=== PATIENT | female | born 1985 | race Caucasian/White ===

== ENCOUNTER 2019-01-25 14:36 | Inpatient (IN) | payer OTHER ==
[~2019-01-25] VITALS: Ht 172.7 cm; Wt 85.0 kg
[2019-01-30] VITALS (56 sets, daily range): BP systolic 104–153; BP diastolic 56–87; PULSE 59–123; TEMP 97.5–100.3
--- NOTE | 2019-01-30 07:30 | NUR ---
Patient ambulatory to unit accompanied by spouse for scheduled induction of labor. Patient in clean gown, oriented to room and call light and resting in bed. FHR and contraction monitors placed and explained. Patient denies any leaking of fluid, vaginal bleeding and states baby has been very active. G1L0, 39.5 weeks gestation. Patient states LGA infant expected, Anemia that she takes iron daily for and Bipolar that she has been seeing psychiatrist for year and taking [place] carbonate twice daily. Per psychiastrist was only to take 1 dose today and took [place] dose this AM. Consents signed, Assessment completed. IV started in left hand and labs collected from IV site, LR infusing without difficulty at 0755. 0800: Pitocin started at 2ml/min per protocol. Patient resting comfortably in bed, call light in reach.
[2019-01-30] MEDS ORDERED: ESKALITH C450 MG/TAB PO (07:38)
[2019-01-30] MEDS ORDERED: CONCEPT DHA1 CAP PO (07:40)
[2019-01-30] MEDS ORDERED: SLOW FE142 MG PO (07:40)
--- NOTE | 2019-01-30 08:17 | NUR ---
0817: SVE with AROM by Dr. Carson. AROM with moderate amount of clear fluid noted. SVE /-[address] Carson. FHR accelerations, scalp stimulation noted during SVE and AROM. Pericare provided. Dr. Carson gives verbal order at bedside that patient can have an epidural when desires. Patient resting in bed, call light in reach and at bedside.
[2019-01-30 08:41] LABS: BASO % 0.3 % (0.0-2.0); EOS # 0.1 (0.0-0.7); EOS % 1.2 % (0-4.0); GRAN # 7.5 (1.4-6.5); GRAN % 71.9 % (42.2-75.2); HEMOGLOBIN 11.6 g/dl (12.5-16.0); LYMPH % 19.1 % (20.0-51.0); MEAN CELL VOLUME 88 fl (80.0-100.0); MEAN CORPUSCULAR HEMOGLOBIN 30 pg (27.0-31.0); MEAN CORPUSCULAR HGB CONC 34 g/dl (33.0-37.0); MONO # 0.7 (0.1-0.6); MONO % 6.5 % (1.7-9.3); PLATELET COUNT 276 K/mm3 (130-400); RED BLOOD COUNT 3.91 M/mm3 (4.10-5.30); REDCELL DISTRIBUTION WIDTH-CV 13.3 % (11.5-14.5)
[2019-01-30 08:48] LABS: HEMATOCRIT 34.5 % (37.0-47.0)
--- NOTE | 2019-01-30 09:55 | NUR ---
Patient off monitors and up to bathroom. Patient back to bed. Patient rating pain with contractions a 3/10 and is breathing controlled through contractions.
--- NOTE | 2019-01-30 10:55 | NUR ---
1055: Patient off monitors and up to bathroom then back to bed. Patient breathing heavily but controlled through contractions. Patient requesting an epidural at this time. Prashanth Newton CRNA at nurses station and notified of patient request. LR bolus infusing.
--- NOTE | 2019-01-30 11:05 | NUR ---
1105: Patient sitting up at side of bed for epidural placement. Prashanth Newton CRNA in room for epidural placement. Epidural time out completed. Epidural started. Single shot at 1109. Epidural catheter placed and secured to patient back. No reaction to single shot noted. 1115: Patient repositioned and resting wedged left in bed. See anesthesia records.
--- NOTE | 2019-01-30 11:20 | NUR ---
1120: Dr. Carson on unit and reviews FHR and contraction pattern. 1125: SVE by Dr. Carson . Verbal order to continue to increase pitocin. 1130: IUPC placed by Dr. Carson. Patient tolerates well. 1135: Torres catheter placed using sterile technique. Patient tolerates well. Patient resting in bed, wedged left with call light in reach. Denies pain or need at this time.
--- NOTE | 2019-01-30 15:55 | NUR ---
1555: sve 10/100/0. 1600: Patient begins pushing with contractions.
--- NOTE | 2019-01-30 17:25 | NUR ---
1630: Epidural off due to patient unable to feel contractions or rectal pressure during contractions. Patient states she is very numb. 1725: Patient feeling pain in lower back after epidural turned back on at 1720. Epidural dose button pressed at 1725.
--- NOTE | 2019-01-30 18:05 | NUR ---
Natanael Camacho RN at bedside. Shift report given. Patient continues to push with contractions.
--- NOTE | 2019-01-30 19:24 | NUR ---
191- Provider at nurse's station at this time, called for delivery. 1914- Provider at bedside for delivery. 1918- N[facility]sey nurse arrived at bedside at this time. 1922- Episiotomy completed by Dr. Carson, spontaneous delivery of head. 1923- Spontaneous delivery of viable female at this time. 1926- Umbilical cord gases drawn at this time by Dr. Carson, along with cord pH. 1929- Spontanoues delivery of intact placenta at this time. 1933- Methergine 0.2mg/IM given at this time. 1938- Cytotec 400mg given rectally by Dr. Carson at this time. 0- Apgars 7,9,9 per Karl Lozano RN. EBL 800cc's. Second degree episiotomy repaired at this time. NO further complications.
[2019-01-31 00:30] VITALS: BP 114/69; PULSE 90; TEMP 98.4
[2019-01-31 02:25] VITALS: BP 125/73; PULSE 100; TEMP 98.9
[2019-01-31 08:37] VITALS: BP 107/71; PULSE 100; TEMP 98.3
[2019-01-31 08:37] LABS: MEAN CELL VOLUME 89 fl (80.0-100.0); MEAN CORPUSCULAR HGB CONC 33 g/dl (33.0-37.0); MEAN PLATELET VOLUME 8.7 fl (7.4-10.4); PLATELET COUNT 237 K/mm3 (130-400); RED BLOOD COUNT 3.04 M/mm3 (4.10-5.30); REDCELL DISTRIBUTION WIDTH-CV 13.2 % (11.5-14.5)
[2019-01-31 08:39] LABS: HEMATOCRIT 27.1 % (37.0-47.0); HEMOGLOBIN 8.9 g/dl (12.5-16.0); MEAN CORPUSCULAR HEMOGLOBIN 29 pg (27.0-31.0)
--- NOTE | 2019-01-31 09:13 | NUR ---
Initial visit; Parents thanked [employer] for offering congratulations and God's blessings for the of their daughter. [facility] C[facility]rer thanked them for choosing [facility].
[2019-01-31 09:45] LABS: BAND 3 % (0-10); LYMPHOCYTE 8 % (20.0-51.0); NEUTROPHILS 87 % (42.0-75.2)
[2019-01-31 09:46] LABS: PLATELET ESTIMATE NORMAL (NORMAL)
[2019-01-31 11:40] LABS: ALBUMIN 2.2 gm/dL (3.5-5.0); BILIRUBIN,TOTAL 0.1 mg/dL (0.0-1.0); CALCIUM 8.7 mg/dL (8.4-10.2); CREATININE, serum 0.9 (0.52-1.25); POTASSIUM 3.7 mmol/L (3.4-5.0); TOTAL PROTEIN 4.6 gm/dL (6.4-8.2)
[2019-01-31 12:10] LABS: THYROID STIMULATING HORMONE 1.37 uIU/mL (0.465-4.680)
[2019-01-31 16:16] VITALS: BP 131/79; PULSE 106; TEMP 98.6
[2019-01-31 19:50] VITALS: BP 128/86; PULSE 105; TEMP 97.8
[2019-02-01 08:05] VITALS: BP 123/74; PULSE 98; TEMP 97.7
[2019-02-01] MEDS ORDERED: IBU600 MG PO (09:45)
== END 2019-02-01 11:30 | disposition home or self-care (01) | DRG 806 ==
LOC: LDR 14:36 → OB 01-30 22:13
PROVIDERS: Psychiatry & Neurology Psychiatry; ADMIT Obstetrics & Gynecology
PROC: 10E0XZZ Delivery of Products of Conception, External Approach (ICD-10-PCS; principal; 2019-01-30)
PROC: 0W8NXZZ Division of Female Perineum, External Approach (ICD-10-PCS; 2019-01-30)
PROC: 10907ZC Drainage of Amniotic Fluid, Therapeutic from Products of Conception, Via Natural or Artificial Opening (ICD-10-PCS; 2019-01-30)
PROC: 3E033VJ Introduction of Other Hormone into Peripheral Vein, Percutaneous Approach (ICD-10-PCS; 2019-01-30)
DX: O36.63X0 Maternal care for excessive fetal growth, third trimester, not applicable or unspecified (principal); O75.2 Pyrexia during labor, not elsewhere classified; Z37.0 Single live birth; O99.343 Other mental disorders complicating pregnancy, third trimester; O62.2 Other uterine inertia; Z3A.38 38 weeks gestation of pregnancy; F31.9 Bipolar disorder, unspecified
CPT/HCPCS: J2210; J2590; J2795; J7120